=== PATIENT | female | born 1960 | race Caucasian/White ===

== ENCOUNTER → 2020-05-13 | Day surgery (SDC) | payer OTHER ==
[2020-05-10 10:42] LABS: BASOPHILS # (AUTO) 0.1 (0.0-0.1); BASOPHILS % 0.7 % (0.0-1.0); EOSINOPHILS # (AUTO) 0.1 (0.0-0.4); EOSINOPHILS % 1.9 % (0.0-6.0); HEMATOCRIT 35.4 % (34.2-44.1); HEMOGLOBIN 11.2 g/dL (12.0-16.0); LYMPHOCYTES # (AUTO) 1.9 (1.0-3.2); LYMPHOCYTES % 26.7 % (18.0-39.1); MEAN CORPUSCULAR HEMOGLOBIN 29.9 pg (28-32); MEAN CORPUSCULAR HGB CONC 31.6 g/dL (31-35); MEAN CORPUSCULAR VOLUME 94.4 fL (81-99); MONOCYTES # (AUTO) 0.3 (0.2-0.8); MONOCYTES % 4.6 % (4.4-11.3); NEUTROPHILS # (AUTO) 4.7 (2.1-6.9); NEUTROPHILS % 65.7 % (38.7-80.0); PLATELET COUNT 279 x10e3/uL (140-360); RED BLOOD COUNT 3.75 x10e6/uL (3.6-5.1)
[2020-05-10 11:11] LABS: ANION GAP 13.8 mmol/L (8-16); BLOOD UREA NITROGEN 11 mg/dL (7-26); BUN/CREATININE RATIO 14 (6-25); CALCIUM 8.9 mg/dL (8.4-10.2); CARBON DIOXIDE 26 mmol/L (22-29); CHLORIDE 106 mmol/L (98-107); CREATININE, SERUM 0.77 mg/dL (0.57-1.11); EST GLOMERULAR FILTRATION RATE > 60 ML/MIN (60-); GLUCOSE 98 mg/dL (74-118); POTASSIUM 3.8 mmol/L (3.5-5.1); SODIUM 142 mmol/L (136-145)
--- NOTE | 2020-05-10 11:43 | Diagnostic Imaging Report ---
Exam: CHEST 2 VIEWS Date: 05/10/2020 11:39 AM INDICATION: ^[id number] ^1105 ^PRE-OP Comparison: 08/17/2014 FINDINGS: Lines/Tubes:None Lungs:The lungs are well inflated. No focal consolidation or pulmonary edema. Pleura:No pleural effusion. No pneumothorax. Heart/Mediastinum:The cardiomediastinal silhouette is normal in size and contour. Bones/Soft Tissues: No acute osseous abnormality. Mild multilevel degenerative changes of the spine are noted. Upper abdomen: Unremarkable. IMPRESSION: Negative for acute intrathoracic process. Signed by: Jerald Marcus MD on 05/10/2020 11:40 AM
[~2020-05-13] MED LIST: BUPIVACAINE HCL 0.5% INJ 30 ML VIAL INJ ONE; CEFAZOLIN SOD 1 GM/NS 50ML 100 ML IV ONE; DEXAMETHASONE SOD PHOS INJ 4 MG/ML VIAL ONE; ENJUVIA PO; ETOMIDATE 2 MG/ML 10 ML INJ IV ONE; FENTANYL CITRATE/PF 100MCG/2 ML INJ ONE; KEFLEX250 MG PO; KETOROLAC TROMETHAMINE 30 MG/ML VIAL ONE; MELOXICAM15 MG PO; MIDAZOLAM HCL 2 MG/2 ML VIAL ONE; MOTRIN200 MG PO; NEOSTIGMINE 1 MG/ML 10ML VIAL ONE; ONDANSETRON HCL INJ 2MG/ML 2ML 2 MG/ML VIAL ONE; PREMARIN0.625 MG PO; PROPOFOL IV EMULSION 10 MG/ML 20 ML VIAL ONE; SEVOFLURANE INHAL SOLN 250 ML PEN BTL ONE
[2020-05-13 10:25] VITALS: BP 120/71
--- NOTE | 2020-05-13 10:38 | Operative Report ---
DATE OF PROCEDURE: 05/13/2020 SURGEON: Ricardo Sullivan DPM ROOM NUMBER: [facility]. PREOPERATIVE DIAGNOSIS: Hallux abductovalgus deformity with degenerative joint disease, left foot. POSTOPERATIVE DIAGNOSIS: Hallux abductovalgus deformity with degenerative joint disease, left foot. TITLE OF THE OPERATION: Modified Sukumar bunionectomy of the left foot with decompression and human tissue allograft, left foot. ANESTHESIA: General endotracheal. HEMOSTASIS: A left thigh tourniquet at 350 mmHg. PROCEDURE IN DETAIL: The patient was taken to the operating room in a mildly sedated state, placed on the operating table in supine position. Following induction of general anesthetic, the left lower extremity was elevated to 60 degrees to exsanguinate before inflating the pneumatic thigh tourniquet to 350 mmHg to create hemostasis. The lower extremities placed on the operating table prior to performing following procedure. Procedure #1: Modified Sukumar bunionectomy of the left foot. An approximate 6 cm dorsal linear incision was made overlying dorsal medial aspect of the 1st metatarsophalangeal joint of the left foot. The incision was deepened via sharp and blunt dissection on the level of the dorsal capsular structure. Care was taken to identify and retract all vital structures encountered. Head of the 1st metatarsal delivered in the surgical site remodeled utilizing oscillating saw. At this point, it was noted that the head of the 1st metatarsal was approximately 30% void of cartilaginous surface presenting significant degenerative joint disease with dorsal bone spurring. A dorsal cheilectomy was performed and drilling subchondrally of the head of the 1st metatarsal was performed utilizing a 0.045 K-wire. This having been accomplished. The area was irrigated with copious amounts of sterile saline solution. Attention was directed back to the 1st met head and through and through V osteotomy was placed with apex distally based proximally to allow for relative shift lateralward of the head on the more proximal segment which was then impacted and stabilized with cortical bone screws, two Trilliant screws. The area was then further remodeled with oscillating saw, rotary rose, irrigated with copious amounts of sterile saline solution. A human tissue allograft was applied to facilitate healing and mitigate the issues with degenerative joint disease. Deep closure was 3-0 Vicryl and 4-0 Vicryl, skin closure 4-0 Prolene , appropriate mildly compressive dressings were applied to the dorsal aspect of the left foot. Steri-Strips were used over the wound. A release of the pneumatic thigh tourniquet showed normal hyperemic flush to all digits left foot. The patient left the operating room with vital signs stable in apparent satisfactory condition and tolerated both the anesthetic and procedure very well. Return to see me within 1 week postoperatively. FRANSISCO Montgomery/JANI /[id number]
== END | disposition home or self-care (01) ==
LOC: OR 05:22
PROVIDERS: ATTEND Podiatrist Foot Surgery
DX: M20.12 Hallux valgus (acquired), left foot (principal); M19.072 Primary osteoarthritis, left ankle and foot; Z01.810 Encounter for preprocedural cardiovascular examination; Z01.812 Encounter for preprocedural laboratory examination; Z01.818 Encounter for other preprocedural examination; Z11.59 Encounter for screening for other viral diseases
CPT/HCPCS: 28289; 36415; 71046; 76000; 80048; 85025; 93005; J0690; J1100; J1885; J2250; J2405; J2704; J3010; U0002; J2710

== ENCOUNTER → 2022-01-30 | Day surgery (SDC) | payer OTHER ==
[~2022-01-30] MED LIST changes: -BUPIVACAINE HCL 0.5% INJ 30 ML VIAL INJ ONE; +CALCIUM; -CEFAZOLIN SOD 1 GM/NS 50ML 100 ML IV ONE; -DEXAMETHASONE SOD PHOS INJ 4 MG/ML VIAL ONE; -ETOMIDATE 2 MG/ML 10 ML INJ IV ONE; -FENTANYL CITRATE/PF 100MCG/2 ML INJ ONE; -KETOROLAC TROMETHAMINE 30 MG/ML VIAL ONE; -MIDAZOLAM HCL 2 MG/2 ML VIAL ONE; +MULTI-VITAMIN1 EACH PO; -NEOSTIGMINE 1 MG/ML 10ML VIAL ONE; -ONDANSETRON HCL INJ 2MG/ML 2ML 2 MG/ML VIAL ONE; -PROPOFOL IV EMULSION 10 MG/ML 20 ML VIAL ONE; -SEVOFLURANE INHAL SOLN 250 ML PEN BTL ONE; +VITAMIN C1000 MG PO; +VITAMIN D; +ZINC
[2022-01-30 09:15] VITALS: BP 113/72
== END | disposition home or self-care (01) ==
LOC: OR 05:31
PROVIDERS: ATTEND Specialist
DX: G56.01 Carpal tunnel syndrome, right upper limb (principal); Z01.810 Encounter for preprocedural cardiovascular examination; Z68.32 Body mass index [BMI] 32.0-32.9, adult; Z79.890 Hormone replacement therapy
CPT/HCPCS: 93005; J0690

== ENCOUNTER → 2022-02-17 | Day surgery (SDC) | payer OTHER ==
[~2022-02-17] MED LIST changes: +FENTANYL CITRATE/PF 100MCG/2 ML INJ ONE; +HYOSCYAMINE SULFATE 0.5 MG/ML INJ ONE; +MIDAZOLAM HCL 2 MG/2 ML VIAL ONE; +PROPOFOL IV EMULSION 10 MG/ML 20 ML VIAL ONE
[2022-02-17 12:45] VITALS: BP 121/62
== END | disposition home or self-care (01) ==
LOC: OR 08:55
PROVIDERS: ATTEND Internal Medicine Gastroenterology
DX: Z12.11 Encounter for screening for malignant neoplasm of colon (principal); D12.2 Benign neoplasm of ascending colon; K64.8 Other hemorrhoids; Z71.3 Dietary counseling and surveillance; Z68.33 Body mass index [BMI] 33.0-33.9, adult; Z86.16 Personal history of COVID-19; Z80.0 Family history of malignant neoplasm of digestive organs
CPT/HCPCS: 45380; 45385; J1980; J2250; J2704; J3010; 45378